=== PATIENT | female | born 1995 | race Caucasian/White ===

== ENCOUNTER 2019-10-22 13:38 | Emergency (ER) | payer OTHER ==
[~2019-10-22] VITALS: Ht 167.6 cm; Wt 147.9 kg
[2019-10-22] MEDS ORDERED: OBSTETRIX EC C1 EACH (13:45)
== END 2019-10-22 18:18 | disposition home or self-care (01) ==
LOC: ER 13:38
DX: O03.6 Delayed or excessive hemorrhage following complete or unspecified spontaneous abortion (principal)